=== PATIENT | male | born 1995 | race Caucasian/White ===

== ENCOUNTER 2024-01-17 05:46 | Emergency (ER) | payer SELFPAY ==
[2024-01-17 05:51] VITALS: BP 125/92; PULSE 61; RESP 16; TEMP 36.5; O2SAT 96; BMI 24.7
[2024-01-17 05:56] VITALS: BP 125/92; PULSE 66; RESP 16; TEMP 36.5; O2SAT 98
--- NOTE | 2024-01-17 06:44 | ED_ITS ---
HPI - General Adult General Chief complaint: General Medical Stated complaint: tooth pain Time Seen by Provider: 01/17/24 06:34 Source: patient Mode of arrival: ambulatory Limitations: no limitations History of Present Illness ED Provider: Robyn HILL HPI narrative: This is a 28-year-old male history of poor dentition (longstanding), presenting to the emergency department with left upper and lower molar pain ongoing for the past 2-1/2 days. Patient reports he has been having issues with these teeth for a long time, he is supposed to see a dentist however has not seen them any time recently, no recent dental work. He tells me ?I think I have a dental infection ?. Denies changes in voice, difficulty swallowing, fevers, chills, headache, vision changes, dizziness or weakness. No recent dental or facial trauma however reports he has a broken tooth that has been there for awhile. Sensitivity to hot and cold foods. Related Data Previous Rx's ?Medication ?Instructions ?Recorded acetaminophen 325 mg capsule 650 mg (2 x 325 mg) PO Q6H PRN 01/17/24 (Tylenol) pain #30 caps amoxicillin 875 mg-potassium 1 tab PO BID 10 days #20 tabs 01/17/24 clavulanate 125 mg tablet naproxen 500 mg tablet 500 mg PO BID #14 tabs 01/17/24 Allergies Allergy/AdvReac Type Severity Reaction Status Date / Time No Known Allergies Allergy Verified 01/17/24 05:53 [No Known Allergies*] Review of Systems Review of Systems: Yes all other systems are reviewed and are negative PMFSH Past Medical History Attestation statement: The following information was validated with the patient. Source: old records reviewed and nursing notes reviewed Social History Social History Smoked in Last 30 Days: No Use of substances other than those prescribed or required for medical reasons: No Advance Directives: No Advance Directives Information Provided: No Do you have a plan to hurt others: No Plan Physical Exam ED Vital Signs: Vital Signs - 24 hr 01/17/24 05:51 01/17/24 05:56 Temperature 97.7 F 97.7 F Pulse Rate 61 66 Respiratory Rate 16 16 Blood Pressure 125/92 H 125/92 H Pulse Oximetry 96 98 Oxygen Delivery Method Room Air Room Air BMI result Body Mass Index 24.7 vss Appearance: Alert.? Oriented X3.? No acute distress.? Head: Normocephalic, atraumatic, no step-offs or deformities Teeth: Left upper teeth # 14-16 and Right lower teeth # 17-19 w/ visualized pulp and missing teeth tooth #20 fractured w/ exposed pulp. No abscess or fluctuance. Speaking in full sentences controlling secretions well. CVS: Normal heart rate and rhythm.? Pulses normal.? Respiratory: No respiratory distress.? Breath sounds normal.? Skin: Skin warm and dry.? Normal skin color.? Normal skin turgor.? Extremities: No lower extremity edema.? No calf ttp. 5/5 strength to bilateral upper and lower extremities Course Reevaluation(s) Reevaluation #1: Educated patient on diagnosis and treatment plan, answered all question, patient verbalizes understanding. At this time patient will be discharged home, advised to return with new or worsening symptoms. Educated on worrisome signs and symptoms and when to return. At this time I feel comfortable discharge home. Time: 06:51 Medical Decision Making Medical Decision Making MDM Narrative: 28-year-old male presents with dental pain for 2-1/2 days. Has not seen a dentist. No fevers or chills. No changes in voice or neck pain. Physical exam Left upper teeth # 14-16 and Right lower teeth # 17-19 w/ visualized pulp and missing teeth tooth #20 fractured w/ exposed pulp. No abscess or fluctuance. Speaking in full sentences controlling secretions well. History and physical exam concerning for poor dentition with early onset dental infection. No abscess. No signs of Jarod's, or systemic illness Plan- atbx and NSAIDs. Dental follow up advised as soon as possible. Differential Diagnosis Differential Diagnoses: The differential diagnosis associated with the presentation includes History and physical exam concerning for poor dentition with early onset dental infection. No abscess. No signs of Jarod's, or systemic illness Admission/Observation Consideration of admission/observation: Escalation of care including admission/observation considered Tests considered The following testing was considered but not selected: Considered lab no signs of systemic illness. Prescription Management I considered prescription management with: Antibiotic Discharge Plan Discharge Clinical Impression: Pain in tooth, Fracture of tooth Patient Disposition: Home, Self-Care Instructions: Toothache (ED), Tooth Extraction (DC) Additional Instructions: Take your medications as prescribed. If you were prescribed antibiotics today, it is important that you take your medication to their entirety, do not skip any doses, do not finish them early. Follow-up with your primary care provider this week. Return to the emergency department with new or worsening symptoms. Such as fevers, chills, chest pain, shortness of breath, nausea, vomiting, dizziness, headache, vision changes, lethargy In case of emergency call 911 Follow up with dentist as soon as possible. [phone] in case you dont have a dentist call TODAY to make an appointment Prescriptions: New naproxen 500 mg tablet 500 mg PO BID Qty: 14 0RF acetaminophen [Tylenol] 325 mg capsule 650 mg PO Q6H PRN (Reason: pain) Qty: 30 0RF amoxicillin-pot clavulanate 875-125 mg tablet 1 tab PO BID 10 Days Qty: 20 0RF Referrals: Physician,None [Primary Care Provider] - 2 days Stand Alone Forms: Work/School Release Interventions: ED Discharge Assessment Last Done: 01/17/24 06:45 Print Language: Ukrainian
[2024-01-17 06:45] VITALS: BP 125/92; PULSE 66; RESP 16; TEMP 36.5; O2SAT 98
== END 2024-01-17 07:11 | disposition home or self-care (01) ==
PROVIDERS: Emergency Provider Student in an Organized Health Care Education/Training Program
DX: K08.89 Other specified disorders of teeth and supporting structures (principal); K08.531 Fractured dental restorative material with loss of material
CPT/HCPCS: 99283; 99284

== ENCOUNTER 2024-02-15 17:37 | Emergency (ER) | payer SELFPAY ==
[2024-02-15 17:38] VITALS: BP 143/83; PULSE 69; RESP 16; TEMP 36.6; O2SAT 99; BMI 24.3
--- NOTE | 2024-02-15 17:38 | ED_ITS ---
HPI - General Adult General Chief complaint: Dental/Oral Stated complaint: lwr left tooth pain Time Seen by Provider: 02/15/24 17:47 Source: patient and RN notes reviewed Mode of arrival: ambulatory Limitations: no limitations History of Present Illness ED Provider: Adri Baltazar PA-C HPI narrative: This is a 28-year-old male who presents emergency department with complaints of left lower dental pain. Patient was seen several weeks ago and was treated with Augmentin. He finish the entire course however reports that over the last couple of days he has noticed increased pain and swelling to the left side of his face. No fevers, chills, difficulty swallowing, chest pain, nausea, vomiting or diarrhea. Denies taking any other complaints or concerns. MD complaint: Left lower dental Onset (ago): day(s) Location: mouth Radiation: non-radiation Relieving factors: none Exacerbating factors: none Associated symptoms: denies other symptoms Treatments prior to arrival: none Related Data Previous Rx's ?Medication ?Instructions ?Recorded acetaminophen 325 mg capsule 650 mg (2 x 325 mg) PO Q6H PRN 01/17/24 (Tylenol) pain #30 caps amoxicillin 875 mg-potassium 1 tab PO BID 10 days #20 tabs 01/17/24 clavulanate 125 mg tablet naproxen 500 mg tablet 500 mg PO BID #14 tabs 01/17/24 clindamycin HCl 300 mg capsule 300 mg PO TID 7 days #21 caps 02/15/24 ibuprofen 600 mg tablet 600 mg PO Q6H PRN pain #30 tabs 02/15/24 Allergies Allergy/AdvReac Type Severity Reaction Status Date / Time No Known Allergies Allergy Verified 02/15/24 17:45 [No Known Allergies*] Review of Systems Review of Systems: Yes all other systems are reviewed and are negative Constitutional: Constitutional: Reports as per HPI [facility] Past Medical History Attestation statement: The following information was validated with the patient. Social History Social History Advance Directives: No Advance Directives Information Provided: No Physical Exam ED Vital Signs: BMI result Body Mass Index 24.3 Const General: cooperative, comfortable and no acute distress Orientation/consciousness: patient oriented x3 Limitations: no limitations HENMT Other: Tooth number 17 with dental decay, with tenderness palpation. Mild Left-sided facial swelling. No trismus, drooling, or dysphonia. Speaking in full sentences. Head: Yes normal to inspection, Yes normocephalic and Yes atraumatic Ears: hearing grossly normal bilaterally General nose exam: Normal external nose present Throat: Yes posterior oropharynx normal, Yes tonsils normal and Yes uvula midline Eyes General: appearance normal, both eyes and all related structures Eyelids: Yes eyelids normal Conjunctivae: conjunctivae normal Sclerae: sclerae normal Pupils: Equal, round and reactive pupils present EOM: EOMs intact bilaterally Neck Neck: Yes normal visual inspection, Yes full ROM and Yes no lymphadenopathy Lymphatic: no lymphadenopathy noted Chest Chest palpation & inspection: normal inspection of the chest Resp Effort & Inspection: normal respiratory effort and able to speak in complete sentences Auscultation: clear to auscultation bilaterally, no crackles, no rales, no rhonchi and no wheezes Cardio Rate: regular rate Rhythm: regular rhythm Heart sounds: S1 normal heart sound present and S2 normal heart sound present GI Inspection: Yes normal to inspection Skin General skin exam: no rashes or lesions noted Trauma: no lacerations or abrasions Wounds: no wounds Neuro General: patient oriented x3 and moves all extremities Cranial nerves: Yes Equal, round and reactive pupils present Extrem General: Yes normal to inspection Right upper extremity: normal to inspection Left upper extremity: normal to inspection Right lower extremity: normal to inspection Left lower extremity: normal to inspection Medical Decision Making Medical Decision Making MDM Narrative: This is a 28-year-old male who presents emergency department with complaints of left lower dental pain. Previously on Augmentin last month. Had good relief however states that he has had worsening pain and swelling over the last several days. No fevers. He has no gingival erythema, fluctuance, or any evidence of abscess. Discussed the importance of following up with a dentist, advised to call on Saturday for an appointment. He was discharged on clindamycin given recent antibiotic use. Given strict return precautions. Patient stable for discharge. Differential Diagnosis Differential Diagnoses: The differential diagnosis associated with the presentation includes Dental decay, fracture, caries, facial pain, dental abscess Discharge Plan Discharge Clinical Impression: Pain, dental Patient Disposition: Home, Self-Care Instructions: Toothache (ED) Additional Instructions: You were seen in the emergency department due to dental pain. You need to be put on antibiotics. Stop taking penicillin. Take clindamycin as prescribed. Patient the entire course even if your symptoms improve. If any new or worsening symptoms occur including but not limited to worsening swelling, pain, fevers, chills, please seek emergent care. Prescriptions: New ibuprofen 600 mg tablet 600 mg PO Q6H PRN (Reason: pain) Qty: 30 0RF clindamycin HCl 300 mg capsule 300 mg PO TID 7 Days Qty: 21 0RF No Action naproxen 500 mg tablet 500 mg PO BID Qty: 14 0RF acetaminophen [Tylenol] 325 mg capsule 650 mg PO Q6H PRN (Reason: pain) Qty: 30 0RF amoxicillin-pot clavulanate 875-125 mg tablet 1 tab PO BID 10 Days Qty: 20 0RF Interventions: ED Discharge Assessment Last Done: 02/15/24 17:48 Discharge Date/Time: 02/15/24 17:55 Print Language: [place]
[2024-02-15 17:48] VITALS: BP 143/83; PULSE 69; RESP 16; TEMP 36.6; O2SAT 99
== END 2024-02-15 17:55 | disposition home or self-care (01) ==
LOC: HO.ED 17:54
PROVIDERS: Emergency Provider Emergency Medicine
DX: K08.89 Other specified disorders of teeth and supporting structures (principal)
CPT/HCPCS: 99282; 99283

== ENCOUNTER 2024-03-08 14:26 | Emergency (ER) | payer SELFPAY ==
[2024-03-08 14:32] VITALS: BP 135/80; PULSE 62; RESP 16; TEMP 36.5; O2SAT 100; BMI 23.6
--- NOTE | 2024-03-08 14:32 | ED_ITS ---
HPI - Dental/Oral General Chief complaint: Dental/Oral Stated complaint: dental pain Time Seen by Provider: 03/08/24 14:33 Source: patient Mode of arrival: ambulatory Limitations: no limitations History of Present Illness ED Provider: Qi Baird APRN HPI Narrative: 28yo male with no known medical history, denies smoking history here with complaints of left lower dental pain with waking. No fevers, chills. Patient reports he was here a few weeks ago for similar symptoms and was prescribed clindamycin which improved his symptoms. He has not seen a dentist because he is waiting for his insurance to become active 04/15. No difficulty swallowing, diff breathing, vomiting, diarrhea, chest pain, shortness of breath. Related Data Previous Rx's ?Medication ?Instructions ?Recorded acetaminophen 325 mg capsule 650 mg (2 x 325 mg) PO Q6H PRN 01/17/24 (Tylenol) pain #30 caps amoxicillin 875 mg-potassium 1 tab PO BID 10 days #20 tabs 01/17/24 clavulanate 125 mg tablet naproxen 500 mg tablet 500 mg PO BID #14 tabs 01/17/24 clindamycin HCl 300 mg capsule 300 mg PO TID 7 days #21 caps 02/15/24 ibuprofen 600 mg tablet 600 mg PO Q6H PRN pain #30 tabs 02/15/24 clindamycin HCl 300 mg capsule 300 mg PO TID #21 caps 03/08/24 ibuprofen 600 mg tablet 600 mg PO Q8H PRN pain #30 tabs 03/08/24 Allergies Allergy/AdvReac Type Severity Reaction Status Date / Time No Known Allergies Allergy Verified 03/08/24 14:35 [No Known Allergies*] Review of Systems 2 Review of Systems: Yes all other systems are reviewed and are negative Constitutional: Constitutional: Reports no additional constitutional complaints, Denies body ache(s), Denies chills, Denies fever(s), Denies headache(s) and Denies weakness Eyes: Eyes: Reports no additional eye complaints and Denies change in vision ENT: Reports system reviewed and no additional complaints, except as documented, Reports dental pain, Denies dizziness, Denies headache(s), Denies nasal congestion, Denies nasal discharge and Denies neck pain Cardiovascular: Cardiovascular: Reports no additional cardiovascular complaints, Denies chest pain, Denies leg edema and Denies dyspnea Respiratory: Respiratory: Reports no additional respiratory complaints, Denies cough and Denies dyspnea Gastrointestinal: Gastrointestinal: Reports no additional gastrointestinal complaints, Denies abdominal pain, Denies diarrhea, Denies nausea and Denies vomiting Genitourinary: Genitourinary: Denies urinary incontinence Musculoskeletal: Musculoskeletal: Reports no additional musculoskeletal complaints, Denies back pain, Denies arthralgias, Denies joint swelling, Denies neck pain, Denies numbness and Denies tingling Integumentary/Breasts: Skin/Breast: Reports system reviewed and no additional complaints, except as docu and Denies rash Neurologic: Reports system reviewed and no additional complaints, except as documented, Denies Abnormal speech present, Denies dizziness, Denies headache(s), Denies numbness, Denies tingling and Denies weakness PMFSH Past Medical History Attestation statement: The following information was validated with the patient. Source: old records reviewed and nursing notes reviewed Physical Exam 2 Vital Signs: Vital Signs: Last Vital Signs Temp 97.7 F 03/08/24 14:32 Pulse 62 03/08/24 14:32 Resp 16 03/08/24 14:32 BP 135/80 03/08/24 14:32 Pulse Ox 100 03/08/24 14:32 O2 Del Method Room Air 03/08/24 14:32 BMI result Body Mass Index 23.6 Const: General: cooperative, healthy appearing, comfortable and no acute distress Orientation/consciousness: patient oriented x3 Limitations: no limitations HEENT: Other: No trismus Head: Yes normal to inspection Ears: hearing grossly normal bilaterally and TM's normal bilaterally General nose exam: Normal external nose present Face and sinus: Yes normal facial exam Face images: 1. +swelling, soft/fluctuant Mouth: Normal oral and palatal mucosa present Teeth image: 1. +broken tooth with erythema/swelling at the gum line. No abscess noted Throat: Yes posterior oropharynx normal, Yes tonsils normal and Yes uvula midline Eyes: General: appearance normal, both eyes and all related structures P upils: Equal, round and reactive pupils present Neck: Neck: Yes normal visual inspection Chest: Chest palpation & inspection: normal inspection of the chest Resp: Effort & Inspection: normal respiratory effort Auscultation: clear to auscultation bilaterally Cardio: Rate: regular rate Rhythm: regular rhythm Peripheral pulses: P eripheral pulses 2+ throughout GI: Inspection: Yes normal to inspection Palpation (GI): Soft to palpation and nontender Auscultation: normal bowel sounds Back/Spine/Pelvis: Thoracic/Lumbar Spine: thoracic and lumbar spine normal to inspection Skin: General skin exam: no rashes or lesions noted Neuro: General: patient oriented x3, no focal motor deficits and normal sensation to monofilament Cranial nerves: Yes Equal, round and reactive pupils present Cognition (Neuro): normal cognition Speech: No Abnormal speech present Gait exam (Neuro): Normal gait present Motor exam (neuro): 5/5 motor strength present throughout Extrem: General: Yes normal to inspection Medical Decision Making Medical Decision Making MDM Narrative: 28yo male with no known medical history, denies smoking history here with complaints of left lower dental pain with waking. No fevers, chills. Patient reports he was here a few weeks ago for similar symptoms and was prescribed clindamycin which improved his symptoms. He has not seen a dentist because he is waiting for his insurance to become active 04/15. No difficulty swallowing, diff breathing, vomiting, diarrhea, chest pain, shortness of breath. +swelling to the left lower face +dental caries with swelling/erythema noted to the gum line. No abscess or trismus Given dental clinic list, RX for antibiotic/NSAID Differential Diagnosis Differential Diagnoses: The differential diagnosis associated with the presentation includes Dental infection Low suspicion for dental abscess, ludwigs angina Admission/Observation Consideration of admission/observation: Escalation of care including admission/observation considered Low suspicion for dental abscess, ludwigs angina requiring advanced imaging, IV antibiotics and or admission External Record Review External record reviewed: Outside ED record Tests considered The following testing was considered but not selected: See above Prescription Management I considered prescription management with: Antibiotic Social Determinants Patient?s care significantly limited by Social Determinants of Health including: Problems related to primary support group Discharge Plan Discharge Clinical Impression: Pain, dental Patient Disposition: Home, Self-Care Instructions: Toothache (ED) Additional Instructions: See dental clinic list Warm salt water gargles Warm compresses to the face Prescriptions: New clindamycin HCl 300 mg capsule 300 mg PO TID Qty: 21 0RF ibuprofen 600 mg tablet 600 mg PO Q8H PRN (Reason: pain) Qty: 30 0RF No Action ibuprofen 600 mg tablet 600 mg PO Q6H PRN (Reason: pain) Qty: 30 0RF clindamycin HCl 300 mg capsule 300 mg PO TID 7 Days Qty: 21 0RF naproxen 500 mg tablet 500 mg PO BID Qty: 14 0RF acetaminophen [Tylenol] 325 mg capsule 650 mg PO Q6H PRN (Reason: pain) Qty: 30 0RF amoxicillin-pot clavulanate 875-125 mg tablet 1 tab PO BID 10 Days Qty: 20 0RF Referrals: Physician,None [Primary Care Provider] - 1 week Print Language: Bulgarian
[2024-03-08 14:46] VITALS: BP 135/80; PULSE 62; RESP 16; TEMP 36.5; O2SAT 100
== END 2024-03-08 14:46 | disposition home or self-care (01) ==
PROVIDERS: Emergency Provider Emergency Medicine
DX: K08.89 Other specified disorders of teeth and supporting structures (principal); Z79.899 Other long term (current) drug therapy
CPT/HCPCS: 99282

== ENCOUNTER 2024-11-03 08:05 | Emergency (ER) | payer OTHER, SELFPAY ==
--- NOTE | ~2024-11-03 | XR_ITS ---
EXAMINATION: XR KNEE 4 OR MORE VIEWS RIGHT HISTORY: trauma COMPARISON: There are no prior studies available for comparison. FINDINGS: Four views of the right knee are submitted. Osseous mineralization is normal. There is no fracture or dislocation. The joint spaces are preserved. There is a moderate suprapatellar joint effusion. XR/XR knee RT 4V IMPRESSION: Moderate joint effusion. Otherwise unremarkable examination of the right knee. Electronically signed by: Tremayne Brock MD 11/03/2024 09:21 AM EDT
[2024-11-03 08:15] VITALS: BP 134/78; PULSE 78; RESP 16; TEMP 36.1; O2SAT 98; BMI 24.3
--- OUTSIDE RECORDS SUMMARY | 2024-11-03 08:33 | XMS_ITS | Clinical Summary ---
Author Organization [facility] Address [address] [place] [address] Care Team Providers Care Fisher Purse Seine Name Role Phone Unavailable Primary Care Provider Unavailabl e Allergies Active Allergy Reactions Criticality Noted Date Comments Penicillins Unknown/Patient and Family Unable to Define Medium 03/12/2024 Medications acetaminophen (TYLENOL) 325 MG tablet TAKE 2 TABLETS ORALLY EVERY 6 HOURS NEEDED FOR PAIN 01/17/2024 Active ibuprofen (MOTRIN) 600 MG tablet Take 1 tablet (600 mg total) by mouth 4 times daily (every 6 hours) as needed. 03/09/2024 Active Active Problems Problem Noted Date Diagnosed Date Dental abscess 03/12/2024 Social History Tobacco Use Types Packs/Day Years Used Date Smoking Tobacco: Never Assessed [facility] Utilities Answer Date Recorded In the past 12 months has [facility] [employer], gas, oil, or water Animated Speech threatened to shut off services in your home? No 03/13/2024 AUDIT-C Answer Date Recorded Q1: How often do you have a drink containing alc ohol? Monthly or less 03/12/2024 Q2: How many drinks containi ng alcohol do you have on a typical day when you are drinking? 1 or 2 03/12/2024 Q3: How often do you have si x or more drinks on one occasion? Never 03/12/2024 Hunger Vital Sign Answer Date Recorded Within the past 12 months, y ou worried that your food would run out before you got the money to buy more. Never true 03/13/20 24 Within the past 12 months, t he food you bought just didn't last and you didn't have money to get more. Never true 03/13/2024 PRAPARE - Transportation Answer Date Re corded In the past 12 months, has l ack of transportation kept you from medical appointments or from getting medications? No 02/14 In the past 12 months, has l ack of transportation kept you from meetings, work, or from getting things needed for daily living? No 03/13/2024 Housing Stability Vital Sign Answer Domenico e Recorded In the last 12 months, was t here a time when you were not able to pay the mortgage or rent on time? No 03/13/2024 In the past 12 months, how m any times have you moved where you were living? 1 03/13/2024 At any time in the past 12 m [facility], were you homeless or living in a long term (including now)? No 03/13/2024 Sex and Gender Information Value Date Recorded Sex Assigned at Male 03/12/2024 8:11 AM EST Legal Sex Male 11:49 PM EST Gender Identity Male 03/12/2024 8:11 AM EST Sexual Orientation Heterosexual (straight) 03/12 8:11 AM EST Last Filed Vital Signs Vital Sign Reading Time Taken Comments Blood Pressure 112/70 03/13/2024 6:10 AM EST Pulse 75 03/13/2024 6:10 AM EST Temperature 35.9 C (96.7 F) 03/13/2024 6:10 AM EST Respiratory Rate 16 03/13/2024 6:10 AM EST Oxygen Saturation 99% 03/13/2024 6:10 AM EST Inhaled Oxygen Concentration - - Weight 72.6 kg (160 lb) 03/12/2024 3:36 PM EST Height - - Body Mass Index - - Plan of Treatment Health Maintenance Due Date Last Done Comments Hepatitis C Virus Screening 1993 HIV Screening 2006 DTaP/Tdap/Td Vaccines (1 - Tdap) 2012 Hepatitis B Vaccines (1 of 3 - 19+ 3-dose series) 2012 COVID-19 Vaccine ( - 2023-2 5 season) 2023 Influenza Vaccine 11/13/2024 HPV Vaccines Aged Out No longer eligi ble based on patient's age to complete this topic Pneumococcal Vaccine: Pediat magui (0-5 Years) and At-Risk Patients (6 to 49 Years) Aged Out No longer eligible b ased on patient's age to complete this topic Insurance [employer] HMO/POS Advance Directives * Full Code (Latest Code Status on File) Date Activated Date Inactivated Comments 03/12/2024 1:22 PM
--- OUTSIDE RECORDS SUMMARY | 2024-11-03 08:33 | XMS_ITS ---
Author Name [facility] Organization Unknown Results Test Name/Text Value Interpretation Date Range Source POC Glucose 113.0 mg/dL Above high normal 03/13/2024 65 - 99 HHCCT Hgb A1c MFr Bld 5.2 % Normal 03/13/2024 - 5.[address] Est[address] average glucose Bld gHb Est-mCnc 103.0 mg/dL Normal 03/13/2024 HHCCT Calcium SerPl-mCnc 9.2 mg/dL Normal 03/13/2024 8.7 - 10.5 HHCCT BUN SerPl-mCnc 15.0 mg/dL Normal 03/13/2024 8 - [address] GFR/BSA.pred SerPlBld TFV-HFU-QsQEtk >90.0 Normal 03/13/2024 59 - HHCCT BUN/Creat SerPl 15.0 Ratio Normal 03/13/2024 10 - 25 HH CCT Chloride SerPl-sCnc 101.0 mmol/L Normal 03/13/2024 98 - 1 07 HHCCT Anion Gap Bld-sCnc 13.0 Normal 03/13/2024 7 - 17 HHCCT Potassium SerPl-sCnc 4.0 mmol/L Normal 03/13/2024 3.4 - 5 .3 HHCCT Creat SerPl-mCnc 1.0 mg/dL Normal 03/13/2024 0.5 - 1.3 HH CCT CO2 SerPl-sCnc 24.0 mmol/L Normal 03/13/2024 22 - 33 HH CCT Sodium SerPl-sCnc 138.0 mmol/L Normal 03/13/2024 136 - 14 5 HHCCT Glucose SerPl-mCnc 123.0 mg/dL Above high normal 03/13/2024 65 - 99 HHCCT MCV RBC Auto 88.0 fL Normal 03/13/2024 80 - 100 HHCCT Hct VFr Bld Auto 41.8 % Normal 03/13/2024 39 - 54 HH CCT Hgb Bld-mCnc 14.1 g/dL Normal 03/13/2024 13 - 17.7 HHCCT MCHC RBC Auto-mCnc 33.7 g/dL Normal 03/13/2024 30 - 36 HHCCT Platelet num Bld Auto 266.0 Thou/uL Normal 03/13/2024 150 - 450 HHCCT WBC num Bld Auto 10.0 Thou/uL Normal 03/13/2024 4 - 11 HHCCT RBC num Bld Auto 4.74 Mil/uL Normal 03/13/2024 4.5 - 6.2 HHCCT RDW RBC Auto-Rto 11.6 % Normal 03/13/2024 11.5 - 14.5 HHCCT PMV Bld Auto 8.3 fL Normal 03/13/2024 7.5 - 12.5 HHCCT MCH RBC Qn Auto 29.7 pg Normal 03/13/2024 26 - [address] POC Glucose 167.0 mg/dL Above high normal 03/12/2024 65 - 99 HHCCT Hgb Bld-mCnc 14.0 g/dL Normal 03/12/2024 13 - 17.7 HHCCT Hct VFr Bld Auto 41.0 % Normal 03/12/2024 39 - 54 HH CCT Magnesium SerPl-mCnc 2.1 mg/dL Normal 03/12/2024 1.6 - 2. 7 HHCCT Calcium SerPl-mCnc 9.2 mg/dL Normal 03/12/2024 8.7 - 10.5 HHCCT Sodium SerPl-sCnc 137.0 mmol/L Normal 03/12/2024 136 - 14 5 HHCCT Chloride SerPl-sCnc 98.0 mmol/L Normal 03/12/2024 98 - 10 7 HHCCT BUN/Creat SerPl 13.0 Ratio Normal 03/12/2024 10 - 25 HH CCT Anion Gap Bld-sCnc 15.0 Normal 03/12/2024 7 - 17 HHCCT CO2 SerPl-sCnc 24.0 mmol/L Normal 03/12/2024 22 - 33 HH CCT Potassium SerPl-sCnc 3.8 mmol/L Normal 03/12/2024 3.4 - 5 .3 HHCCT Creat SerPl-mCnc 0.9 mg/dL Normal 03/12/2024 0.5 - 1.3 HH CCT GFR/BSA.pred SerPlBld LLB-OHC-FtFMhz >90.0 Normal 03/12/2024 59 - HHCCT BUN SerPl-mCnc 12.0 mg/dL Normal 03/12/2024 8 - [address] Glucose SerPl-mCnc 99.0 mg/dL Normal 03/12/2024 65 - 99 HHCCT Neutrophils/leuk NFr Bld Auto 78.6 % Normal 03/12/2024 HHCCT Lymphocytes num Bld Auto 1.44 Thou/uL Below low normal 03/12/2024 1.5 - 4.5 HHCCT Basophils num Bld Auto 0.01 Thou/uL Normal 03/12/2024 0 - 0.2 HHCCT Monocytes num Bld Auto 0.56 Thou/uL Normal 03/12/2024 0.2 - 1.5 HHCCT Neutrophils num Bld Auto 7.49 Thou/uL Normal 03/12/2024 2 - 7.5 HHCCT Hct VFr Bld Auto 44.8 % Normal 03/12/2024 39 - 54 HH CCT Basophils/leuk NFr Bld Auto 0.1 % Normal 03/12/2024 HHCCT MCH RBC Qn Auto 29.6 pg Normal 03/12/2024 26 - [address] Imm Granulocytes/leuk NFr Bld Auto 0.3 % Normal 03/12/2024 HHCCT Platelet num Bld Auto 249.0 Thou/uL Normal 03/12/2024 150 - 450 HHCCT Eosinophil num Bld Auto 0.0 Thou/uL Normal 03/12/2024 0 - 0.7 HHCCT Eosinophil/leuk NFr Bld Auto 0.0 % Normal 03/12/2024 HHCCT WBC num Bld Auto 9.5 Thou/uL Normal 03/12/2024 4 - 11 HHCCT MCHC RBC Auto-mCnc 33.7 g/dL Normal 03/12/2024 30 - 36 HHCCT Monocytes/leuk NFr Bld Auto 5.9 % Normal 03/12/2024 HHCCT MCV RBC Auto 88.0 fL Normal 03/12/2024 80 - 100 HHCCT PMV Bld Auto 8.1 fL Normal 03/12/2024 7.5 - 12.5 HHCCT RBC num Bld Auto 5.1 Mil/uL Normal 03/12/2024 4.5 - 6.2 H HCCT Lymphocytes/leuk NFr Bld Auto 15.1 % Normal 03/12/2024 HHCCT Imm Granulocytes num Bld Auto 0.03 Thou/uL Normal 03/12/2024 0 - 0.1 HHCCT RDW RBC Auto-Rto 11.7 % Normal 03/12/2024 11.5 - 14.5 HHCCT Hgb Bld-mCnc 15.1 g/dL Normal 03/12/2024 13 - 17.7 HHCCT Encounters Encounter Type Encounter Reason Primary Diagnosis Location Date Inpatient Periapical abscess without sinus Periapical abscess without sinus [facility] 03/12/2024 Ambulatory [facility] 03/12/2024 Care Team Organization Name Specialty Phone Email Start Date End Da te [facility] 03/14/2024 07/01/2024 [facility] 03/12/2024
--- OUTSIDE RECORDS SUMMARY | 2024-11-03 08:33 | XMS_ITS | Clinical Summary ---
Author Organization [employer] Address [address] [place] [address] Care Team Providers Care Cinder Worker Name Role Phone Unavailable Primary Care Provider Unavailabl e Allergies Active Allergy Reactions Criticality Noted Date Comments Penicillins 03/09/2024 Medications clindamycin (Cleocin) 300 MG capsule Take 300 mg by mouth 4 times daily. Active ibuprofen 600 MG tablet Take by mouth. Active ibuprofen 600 MG tabletIndication s:Dental abscess Take 1 tablet (600 mg) by mouth every 6 (six) hours if needed for mild pain for up to 20 doses. 20 tablet 03/09/2024 Active Active Problems No known active problems Social History Tobacco Use Types Packs/Day Years Used Date Smoking Tobacco: Never Smokeless Tobacco: Never Tobacco Cessation:Counseling Given: Not Answered Sex and Gender Information Value Date Recorded Sex Assigned at Male 02/12/2022 10:14 AM EDT Legal Sex Male 10:14 AM EDT Gender Identity Male 03/09/2024 10:24 AM EST Sexual Orientation Don't know 03/09/2024 10 :24 AM EST Last Filed Vital Signs Vital Sign Reading Time Taken Comments Blood Pressure 124/88 03/18/2024 8:20 AM EST Pulse - - Temperature - - Respiratory Rate - - Oxygen Saturation - - Inhaled Oxygen Concentration - - Weight - - Height - - Body Mass Index - - Plan of Treatment Health Maintenance Due Date Last Done Comments Dental Prophylaxis 1993 Depression Screening 1993 HIV Screening 1993 SDOH Screening 1993 Disability Screening 1993 Hepatitis B Vaccines (3 of 3 - 3-dose series) 1993 1993, 1993 Alcohol/Substance Use Screening 2005 Family Planning (PISQ) 2008 HPV Vaccines (1 - Male 3-dose series) 2008 Dental Oral Exam 11/22/2008 05/24/2008 Dental X-Ray: Bitewings 05/25/2009 05/24/2008 Hepatitis C Screening 2011 COVID-19 Vaccine (1 - 2023- season) 2023 Influenza Vaccine (#1) 2024 Tobacco Screening 03/20/2025 03/20/2024 DTaP/Tdap/Td Vaccines (8 - Td or Tdap) 01/06/2027 01/06/2017, 09/07/2011, 01/19/2005, Additional history exists Dental X-Ray: Full Mouth 03/10/2027 03/09/2024 Zoster Vaccines (1 of 2) 2043 RSV Patients and Patients Aged 60 years or older (1 - 1-dose 75+ series) 2068 HIB Vaccines Completed 10/13/1994, 10/13, 1993, Additional history exists IPV Vaccines Completed 05/10/1998, 04/1993, 1993, Additional history exists Meningococcal Vaccine Aged Out 09/30/2006 No sami ned eligible based on patient's age to complete this topic Hepatitis A Vaccines Aged Out No long er eligible based on patient's age to complete this topic Meningococcal B Vaccine Aged Out No l onger eligible based on patient's age to complete this topic Pneumococcal Vaccine: Pediatrics (0 to 5 Years) and At-Risk Patients (6 to 49) Years Aged Out No longer eligible based on patient's age to complete this topic RSV under 20 months Aged Out No longe r eligible based on patient's age to complete this topic Rotavirus Vaccines Aged Out No longer eligible based on patient's age to complete this topic Procedures Procedure Name Priority Date/Time Associated Diagnosis Comments PANORAMIC RADIOGRAPHIC IMAGE Routine 03/09/2024 11:00 AM EST Dental abscess BITEWINGS - 4 RADIOGRAPHIC IMAGES Routine 05/24/2008 12:00 AM EST COMPREHENSIVE ORAL EVALUATION - NEW OR ESTABLISHED PATIENT Routine 05/24/2008 12:00 AM EST from Last 3 Months or Most Recently Relevant to Health Maintenance
--- NOTE | 2024-11-03 08:39 | ED_ITS ---
HPI - Extremity Injury (Lower) General Chief Complaint: Extremity Injury, Lower Stated Complaint: right knee twisted Time Seen by Provider: 11/03/24 08:12 Source: patient Limitations: no limitations History of Present Illness complaint: knee injury Onset (ago): day(s) (1) Injury: Right: knee Type of Injury: blunt Severity: mild Relieving factors: nothing Exacerbating factors: nothing Context: jumping Associated symptoms: able to partially bear weight Other symptoms: none Related Data Previous Rx's ?Medication ?Instructions ?Recorded acetaminophen 325 mg capsule 650 mg (2 x 325 mg) PO Q6 H PRN 01/17/24 (Tylenol) pain #30 caps amoxicillin 875 mg-potassium 1 tab PO BID 10 days #20 tabs 01/17/24 clavulanate 125 mg tablet naproxen 500 mg tablet 500 mg PO BID #14 tabs 01/16 clindamycin HCl 300 mg capsule 300 mg PO TID 7 days #2 1 caps 02/15/24 ibuprofen 600 mg tablet 600 mg PO Q6H PRN pain #30 t abs 02/15/24 clindamycin HCl 300 mg capsule 300 mg PO TID #21 caps 03/08/24 ibuprofen 600 mg tablet 600 mg PO Q8H PRN pain #30 t abs 03/08/24 ibuprofen 800 mg tablet 800 mg PO Q8H PRN pain #20 t abs 11/03/24 Allergies Allergy/AdvReac Type Severity Reaction Status Date / Time Penicillins Allergy Unknown Verified 11/03/24 08:18 Review of Systems Constitutional: Constitutional: Reports no additional constitutional complaints Eyes: Eyes: Reports no additional eye complaints Cardiovascular: Cardiovascular: Reports no additional cardiovascular complaints [facility] Past Medical History Attestation statement: The following information was validated with the patient. Social History Social History Advance Directives: No Advance Directives Information Provided: No Physical Exam Exam: Exam: Not acute distress Vital Signs: Vital Signs: Last Vital Signs Temp 97 F 11/03/24 08:15 Pulse 78 11/03/24 08:15 Resp 16 11/03/24 08:15 BP 134/78 11/03/24 08:15 Pulse Ox 98 11/03/24 08:15 O2 Del Method Room Air 11/03/24 08:15 BMI result Body Mass Index 24.3 Looks well no distress Const: General: cooperative Nutritional Appearance: average body habitus Orientation/consciousness: patient oriented x3 Limitations: no limitations HEENT: Head: Yes normal to inspection General nose exam: Normal external nose present Face and sinus: Yes normal facial exam Mouth: Normal oral and palatal mucosa present Throat: Yes posterior oropharynx normal Neck: Neck: Yes normal visual inspection and Yes full ROM Chest: Chest palpation & inspection: normal inspection of the chest Resp: Effort & Inspection: normal respiratory effort Cardio: Jugular venous distension: no JVD Rate: regular rate Rhythm: regular rhythm GI: Inspection: Yes normal to inspection Palpation (GI): Soft to palpation, not firm, nontender and no guarding Percussion: Yes normal to percussion Auscultation: normal bowel sounds Neuro: General: patient oriented x3 Cranial nerves: Yes CN's II-XII intact bilaterally Course Reevaluation(s) Reevaluation #1: X-ray no fracture dislocation anticipate discharge Time: 10:52 Medications Administered Discontinued Medications Generic Name Dose Route Start Last Admin Trade Name Freq PRN Reason Stop Dose Admin Acetaminophen 975 mg 11/03/24 08:14 11/03/24 08:24 Acetaminophen 325 Mg Tablet PO 11/03/24 08:15 975 mg ONCE ONE Administration Ibuprofen 800 mg 11/03/24 08:13 11/03/24 08:24 Ibuprofen 800 Mg Tablet PO 11/03/24 08:14 800 mg ONCE ONE Administration Medical Decision Making Medical Decision Making [facility] Narrative: Patient presented with abdominal pain seen already none of the hospital Saturday he had right upper quadrant ultrasound which was negative no blood work was done that day. We will do Differential Diagnosis Differential Diagnoses: The differential diagnosis associated with the presentation includes Foreign body ingestion/gastroenteritis/appendicitis Independent Interpretation I performed an independent interpretation of an: Plain X-Ray Radiology Impression Discussion of test interpretation with radiology: I have reviewed the radiologist's reading. Radiologist Impression: HISTORY: trauma COMPARISON: There are no prior studies available for comparison. FINDINGS: Four views of the right knee are submitted. Osseous mineralization is normal. There is no fracture or dislocation. The joint spaces are preserved. There is a moderate suprapatellar joint effusion. XR/XR knee RT 4V IMPRESSION: Moderate joint effusion. Otherwise unremarkable examination of the right knee. Electronically signed by: Tremayne Brock MD 11/03/2024 09:21 AM EDT RP Dictated By: Tremayne Brock MD Prescription Management I considered prescription management with: Pain Medication Discharge Plan Discharge Clinical Impression: Acute internal derangement of knee Patient Disposition: Home, Self-Care Additional Instructions: Follow-up with orthopedist see number below use crutches keep your legs elevated ice return if worse Prescriptions: New ibuprofen 800 mg tablet 800 mg PO Q8H PRN (Reason: pain) Qty: 20 0RF No Action ibuprofen 600 mg tablet 600 mg PO Q6H PRN (Reason: pain) Qty: 30 0RF clindamycin HCl 300 mg capsule 300 mg PO TID 7 Days Qty: 21 0RF clindamycin HCl 300 mg capsule 300 mg PO TID Qty: 21 0RF ibuprofen 600 mg tablet 600 mg PO Q8H PRN (Reason: pain) Qty: 30 0RF naproxen 500 mg tablet 500 mg PO BID Qty: 14 0RF acetaminophen [Tylenol] 325 mg capsule 650 mg PO Q6H PRN (Reason: pain) Qty: 30 0RF amoxicillin-pot clavulanate 875-125 mg tablet 1 tab PO BID 10 Days Qty: 20 0RF Referrals: Ashvin Dubois MD [Physician, Orthopedics] Print Language: [place] Verdean
[2024-11-03 11:22] VITALS: BP 138/81; PULSE 67; RESP 16; TEMP 36.1; O2SAT 99
== END 2024-11-03 11:25 | disposition home or self-care (01) ==
PROVIDERS: Emergency Provider Emergency Medicine
DX: M23.91 Unspecified internal derangement of right knee (principal); M25.561 Pain in right knee; M25.461 Effusion, right knee
CPT/HCPCS: 73564; 99283

== ENCOUNTER → 2024-11-03 08:14 | Outpatient (BNV) | payer OTHER, SELFPAY | PROVIDERS: Emergency Provider Emergency Medicine; Visit Provider Radiology Diagnostic Radiology | DX: M25.461 Effusion, right knee (principal) | CPT/HCPCS: 73564 ==

== ENCOUNTER 2024-12-25 08:15 | Outpatient (REF) | payer OTHER, SELFPAY ==
--- OUTSIDE RECORDS SUMMARY | 2024-12-25 08:33 | XMS_ITS | Clinical Summary ---
Author Organization [facility] Address [address] [place] [address] Care Team Providers Care Assembly Line Inspector Name Role Phone Unavailable Primary Care Provider [...] Years Used Date Smoking Tobacco: Never Assessed [facility] Utilities Answer Date Recorded In the past 12 months has [facility] [employer], gas, oil, or water [employer] threatened to shut off services in your [...] any time in the past [address] [facility] [place], were you homeless or living in a long-term (including now)? No 03/13/2024 Sex and Gender [...] of 3 - 19+ 3-dose series) 2012 HPV Vaccines (1 - 3-dose SCD M series) 2020 COVID-19 Vaccine ( - 2023-2 5 season) 2023 Influenza Vaccine 11/13/2024 Pneumococcal Vaccine: Pediat magui (0-5 Years) and At-Risk Patients (6 to 49 Years) Aged Out No longer eligible b ased on patient's age to complete this topic Insurance [employer] HMO/POS Advance Directives * Full Code (Latest Code Status on File) Date Activated Date Inactivated Comments 03/12/2024 1:22 PM
--- OUTSIDE RECORDS SUMMARY | 2024-12-25 08:33 | XMS_ITS | Clinical Summary ---
Author Organization [employer] Address [address] [place] [address] Care Team Providers Care Radiographer Angiogram Name Role Phone Unavailable Primary Care Provider [...] 2011 COVID-19 Vaccine (1 - 2023- season) 2024 Influenza Vaccine (#1) 2024 Tobacco Screening 03/20/2025 [...]
== END 2024-12-25 08:16 | disposition home or self-care (01) ==
LOC: HO.HOSX 08:15
DX: Z13.89 Encounter for screening for other disorder (principal)